=== PATIENT | female | born 1930 | race Caucasian/White ===

== ENCOUNTER 2017-01-17 13:45 | Inpatient (IN) | payer MEDICARE ==
[~2017-01-17] VITALS: Ht 152.4 cm; Wt 52.8 kg
[2017-01-17] MEDS ORDERED: SODIUM CHLORIDE 0.9% 1,000 ML IV ONE (14:09)
[2017-01-17] MEDS ORDERED: MAGNESIUM SULFATE 1 GM in SODIUM CHLORIDE 0.9% 50 ML IV ONE (14:30)
[2017-01-17] MEDS ORDERED: ALBUTEROL/IPRATROPIUM 2.5MG/0.5MG, 3 ML NPPB ONE (14:30)
[2017-01-17] MEDS ORDERED: methylPREDNISolone SOD SUCC 125 MG/2 ML IVP ONE (14:30)
[2017-01-17] MEDS ORDERED: SODIUM CHLORIDE FLUSH 10ML SYR IVF ONE (14:30)
[2017-01-17] MEDS ORDERED: methylPREDNISolone SOD SUCC 125 MG/2 ML ONE (14:40)
[2017-01-17 14:46] LABS: BLOOD UREA NITROGEN 25 mg/dL (7-18)
[2017-01-17] MEDS ORDERED: ALBUTEROL/IPRATROPIUM 2.5MG/0.5MG, 3 ML ONE ×2 (14:49→18:46)
[2017-01-17 14:51] LABS: IS PT STATUS REG ER OR PRE ER? YES
[2017-01-17] MEDS ORDERED: FLUT1DIS5 IH (15:42)
[2017-01-17] MEDS ORDERED: QUIN324C PO (15:42)
[2017-01-17] MEDS ORDERED: TIOT4MIS5 INH (15:42)
[2017-01-17] MEDS ORDERED: LOVA40TA2 PO (15:42)
[2017-01-17] MEDS ORDERED: ASPI-496 PO (15:42)
[2017-01-17] MEDS ORDERED: VITA1CAP PO (15:42)
[2017-01-17] MEDS ORDERED: GLUC1TAB35 PO (15:42)
[2017-01-17] MEDS ORDERED: OMEP-110 PO (15:42)
[2017-01-17] MEDS ORDERED: ASCO500T8 PO (15:42)
[2017-01-17] MEDS ORDERED: ENAL20TA PO (15:42)
[2017-01-17] MEDS ORDERED: GABA300C10 PO (15:42)
[2017-01-17] MEDS ORDERED: MULT-717 PO (15:42)
[2017-01-17] MEDS ORDERED: CALC200T37 PO (15:43)
[2017-01-17 18:00] VITALS: BP 110/60
[2017-01-17] MEDS ORDERED: GUAIFENESIN/DM 200-20MG, 10ML UDC PO PRN (18:00)
[2017-01-17] MEDS ORDERED: BISACODYL 10 MG SUPP PR PRN (18:00)
[2017-01-17] MEDS ORDERED: ENOXAPARIN 40 MG/0.4 ML SQ SCH (18:00)
[2017-01-17] MEDS ORDERED: DOCUSATE 100 MG CAPSULE PO PRN (18:00)
[2017-01-17] MEDS ORDERED: POLYETHYLENE GLYCOL 17 GM PACKET PO PRN (18:00)
[2017-01-17] MEDS: ALBUTEROL/IPRATROPIUM 2.5MG/0.5MG, 3 ML NPPB SCH (19:10)
[2017-01-17] MEDS ORDERED: ALBUTEROL/IPRATROPIUM 2.5MG/0.5MG, 3 ML NPPB PRN (19:30)
[2017-01-17 20:00] VITALS: BP 112/60
[2017-01-17] MEDS ORDERED: TIOTROPIUM BROMIDE INH SCH (21:00)
[2017-01-17] MEDS ORDERED: GABAPENTIN 300 MG CAPSULE PO SCH ×2 (21:00)
[2017-01-17] MEDS ORDERED: TEMPLATE NON-FORMULARY MED. (Gluc/Chon-Msm#1/Vit C/Mang/Bor** (Glucosa-Chond-Msm Complex C PO SCH (21:00)
[2017-01-17] MEDS ORDERED: TEMPLATE NON-FORMULARY MED. (Fluticasone/Salmeterol** (Advair 500-50 Diskus**) 1 PUFF) IH SCH (21:00)
[2017-01-17] MEDS ORDERED: LOVASTATIN 40 MG TABLET PO SCH (21:00)
[2017-01-17 22:03] LABS: IS PT STATUS REG ER OR PRE ER? NO
[2017-01-17] MEDS ORDERED: IPRATROPIUM 0.5 MG/2.5 ML INHA HHN SCH (22:27)
[2017-01-17] MEDS: QUININE SULFATE 300 MG PO SCH (22:27)
[2017-01-17] MEDS: DOXYCYCLINE 100MG TABLET PO SCH (22:29)
[2017-01-17] MEDS: FAMOTIDINE 20 MG TABLET PO SCH (22:30)
[2017-01-17] MEDS: methylPREDNISolone SOD SUCC 125 MG/2 ML IVPush SCH (22:31)
[2017-01-18 01:27] VITALS: BP 118/62
[2017-01-18 03:35] LABS: BLOOD UREA NITROGEN 25 mg/dL (7-18)
[2017-01-18 03:42] LABS: IS PT STATUS REG ER OR PRE ER? NO
[2017-01-18] MEDS: methylPREDNISolone SOD SUCC 125 MG/2 ML IVPush SCH ×2 (04:08→13:13)
[2017-01-18] MEDS: ALBUTEROL/IPRATROPIUM 2.5MG/0.5MG, 3 ML NPPB SCH ×3 (07:10→14:50)
[2017-01-18 07:43] VITALS: BP 123/85
[2017-01-18] MEDS ORDERED: FLUTICASONE/VILANTEROL 200-25MCG/INH INH SCH (09:00)
[2017-01-18] MEDS ORDERED: MULTIVITS,STRESS FORMULA 1 TABLET PO SCH (09:00)
[2017-01-18] MEDS ORDERED: ASCORBIC ACID 500 MG TABLET PO SCH (09:00)
[2017-01-18] MEDS ORDERED: MULTIVITAMIN 1 TABLET PO SCH (09:00)
[2017-01-18] MEDS ORDERED: ASPIRIN 81 MG TABLET EC PO SCH (09:00)
[2017-01-18] MEDS: QUININE SULFATE 300 MG PO SCH (09:00)
[2017-01-18] MEDS ORDERED: ENALAPRIL 20MG TABLET PO SCH (09:00)
[2017-01-18] MEDS: FAMOTIDINE 20 MG TABLET PO SCH (09:27)
[2017-01-18] MEDS: DOXYCYCLINE 100MG TABLET PO SCH (09:27)
[2017-01-18] MEDS ORDERED: DOXY100T PO (13:19)
[2017-01-18] MEDS ORDERED: PRED5TAB PO (13:19)
[2017-01-18 15:00] VITALS: BP 100/50
[2017-01-18] MEDS ORDERED: ENOXAPARIN 30 MG/0.3 ML SQ SCH (22:00)
== END 2017-01-18 15:52 | disposition home or self-care (01) | DRG 682 ==
LOC: ED 15:10 → EDIP 15:59 → 4NOR 17:53 → DCLOUNGE 01-18 14:40
PROVIDERS: ADMIT Hospitalist; ATTEND Family Medicine
DX: N17.9 Acute kidney failure, unspecified (principal); J96.21 Acute and chronic respiratory failure with hypoxia; E43 Unspecified severe protein-calorie malnutrition; J44.1 Chronic obstructive pulmonary disease with (acute) exacerbation; E87.1 Hypo-osmolality and hyponatremia; J44.0 Chronic obstructive pulmonary disease with (acute) lower respiratory infection; I10 Essential (primary) hypertension; E78.5 Hyperlipidemia, unspecified; I73.9 Peripheral vascular disease, unspecified; J84.10 Pulmonary fibrosis, unspecified; Z85.3 Personal history of malignant neoplasm of breast; Z86.73 Personal history of transient ischemic attack (TIA), and cerebral infarction without residual deficits; Z87.891 Personal history of nicotine dependence; Z99.81 Dependence on supplemental oxygen; Z79.82 Long term (current) use of aspirin; Z79.899 Other long term (current) drug therapy; Z88.8 Allergy status to other drugs, medicaments and biological substances; Z68.22 Body mass index [BMI] 22.0-22.9, adult; R73.9 Hyperglycemia, unspecified; J20.9 Acute bronchitis, unspecified
CPT/HCPCS: 36415; 71010; 80048; 82040; 83880; 84484; 85025; 87040; 93005; 94640; 96374; J1650; J3475; J7620; J2930; J7030

== ENCOUNTER → 2017-10-27 | Outpatient (CLI) | payer MEDICARE ==
[~2017-10-27] MED LIST: ASCO500T8 PO; ASPI-496 PO; CALC-680 PO; DOXY100T PO; ENAL20TA PO; FLUT1DIS5 IH; GABA300C10 PO; GLUC1TAB35 PO; LOVA40TA2 PO; MULT-717 PO; OMEP-110 PO; PRED5TAB PO; QUIN324C PO; TIOT4MIS5 INH; VITA1CAP PO
== END | disposition home or self-care (01) ==
LOC: PETCFH 12:32
PROVIDERS: ATTEND Nurse Practitioner Family
DX: R91.1 Solitary pulmonary nodule (principal); N28.1 Cyst of kidney, acquired
CPT/HCPCS: 78815; A9552